=== PATIENT | female | born 1995 | race Asian ===

== ENCOUNTER 2019-04-13 15:00 | Emergency (ER) | payer OTHER ==
[2019-04-13 15:21] VITALS: BP 121/67; PULSE 79; TEMP 98.7; BMI 25.2
[2019-04-13] MEDS ORDERED: DIPHTH,PERTUSS(ACELL),TET 0.5 ML DISP.SYRIN IM ONE ×2 (15:42→15:44)
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
== END 2019-04-13 16:05 | disposition home or self-care (01) ==
LOC: JERFT 15:00
PROC: 3E0234Z Introduction of Serum, Toxoid and Vaccine into Muscle, Percutaneous Approach (ICD-10-PCS; principal; 2019-04-13)
DX: S13.4XXA Sprain of ligaments of cervical spine, initial encounter (principal); S20.312A Abrasion of left front wall of thorax, initial encounter; L08.9 Local infection of the skin and subcutaneous tissue, unspecified; V43.52XA Car driver injured in collision with other type car in traffic accident, initial encounter; W22.11XA Striking against or struck by driver side automobile airbag, initial encounter; Y92.414 Local residential or business street as the place of occurrence of the external cause; Y93.89 Activity, other specified; Y99.8 Other external cause status
CPT/HCPCS: 90715; 99281-25